=== PATIENT | female | born 1995 | race Caucasian/White ===

== ENCOUNTER 2022-05-18 08:47 | Day surgery (SDC) | payer MEDICAID ==
[2022-05-17 10:16] LABS: HCG,QUAL RESULT NEGATIVE (NEGATIVE)
[~2022-05-18] VITALS: Ht 152.4 cm; Wt 78.9 kg
[2022-05-18] MEDS ORDERED: METOCLOPRAMIDE HCL 10 MG/2 ML VIAL IVP ONE (11:00)
[2022-05-18] MEDS ORDERED: SEVOFLURANE 15 MIN GAS INH ONE (11:00)
[2022-05-18] MEDS ORDERED: CEFAZOLIN 2 GM IVPB PREMIX 50 ML IV ONE (11:00)
[2022-05-18] MEDS ORDERED: BUPIVACAINE /PF 0.5% 30 ML VIAL INJ ONE (11:00)
[2022-05-18] MEDS ORDERED: ROCURONIUM BROMIDE 10 MG/ML (ZEMURON) IV ONE (11:00)
[2022-05-18] MEDS ORDERED: ONDANSETRON HCL 4 MG/2 ML VIAL IVP ONE (11:00)
[2022-05-18] MEDS ORDERED: SUGAMMADEX SODIUM 200 MG/2 ML VIAL IV ONE (11:00)
[2022-05-18] MEDS ORDERED: ePHEDrine sulfate 50 MG/ML VIAL IVP ONE (11:00)
[2022-05-18] MEDS ORDERED: LR 1,000 ML IV.SOLN IV ONE (11:00)
[2022-05-18] MEDS ORDERED: fentaNYL CITRATE/PF 100 MCG/2 ML AMP IVP ONE (11:00)
[2022-05-18] MEDS ORDERED: MIDAZOLAM HCL 5 MG/5 ML VIAL IVP ONE (11:00)
[2022-05-18] MEDS ORDERED: DEXAMETHASONE SOD PHOSPHATE 4 MG/ML VIAL IVP ONE (11:00)
[2022-05-18] MEDS ORDERED: WATER FOR IRRIGATION,STERILE 1,000 ML IRRIG.SOLN IR ONE (11:00)
[2022-05-18] MEDS ORDERED: PROPOFOL 200MG/ 20ML VIAL (DIPRIVAN) IV ONE (11:00)
[2022-05-18] MEDS ORDERED: MEPERIDINE HCL/PF 25 MG/ML DISP.SYRIN IVP PRN (12:15)
[2022-05-18] MEDS ORDERED: KETOROLAC TROMETHAMINE 30 MG VIAL IVP PRN (12:15)
[2022-05-18] MEDS ORDERED: HYDROmorphone 1 MG/ML INJ. CARTRIDGE IVP PRN (12:15)
[2022-05-18] MEDS ORDERED: ONDANSETRON HCL 4 MG/2 ML VIAL IVP PRN (12:15)
[2022-05-18] MEDS ORDERED: KETOROLAC TROMETHAMINE 30 MG VIAL ONE (12:56)
[2022-05-18 14:08] VITALS: BP_SYST 110
== END 2022-05-18 14:05 | disposition home or self-care (01) ==
LOC: SDS 08:47 → SMU 08:47 → SDS 14:05
PROVIDERS: ATTEND Obstetrics & Gynecology
DX: Z30.2 Encounter for sterilization (principal); Z20.822 Contact with and (suspected) exposure to COVID-19
CPT/HCPCS: 84703; 36415; 58670; U0003; J3490 ×2; J0690; J1100; J1885; J2765; J2250; J2405; J2704; J3010; J7120; C1727